=== PATIENT | male | born 2000 | race Caucasian/White ===

== ENCOUNTER → 2023-06-27 09:35 | Outpatient (REF) | payer BC, SELFPAY ==
[2023-06-29 20:32] LABS: Quantiferon Mitogen minus NIL 7.58 IU/mL; Quantiferon NIL 0.06 IU/mL; Quantiferon TB Gold Plus Negative (Negative)
== END ==
LOC: HWLAB 09:35
PROVIDERS: ATTENDING PHYSICIAN Internal Medicine
DX: Z11.1 Encounter for screening for respiratory tuberculosis (principal)
CPT/HCPCS: 36415; 86480